=== PATIENT | female | born 1955 ===

== ENCOUNTER 2017-06-18 17:00 | Emergency (ER) | payer OTHER ==
[2017-06-18 17:11] VITALS: BP 127/79; PULSE 81; RESP 19; TEMP 98.7; O2SAT 99
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
--- NOTE | 2017-06-19 07:44 | RAD ---
PROCEDURE: Cervical Spine Radiographs. HISTORY: Pain. COMPARISON: None. FINDINGS: BONES: There is a mild reversal of cervical curvature but no definite fracture or spondylolisthesis is demonstrated. Advanced spondylosis identified at the C4-5 and C6-7 levels anteriorly but is minimal at C5-6. Mild multilevel facet joint arthropathy appears diffuse. Vertebral body heights are normal with limited disc height loss identified at C6-7. Prevertebral soft tissues are unremarkable as well as the odontoid process. DISC SPACES: As above. SOFT TISSUES: As above. OTHER FINDINGS: None. IMPRESSION: No definite fracture or spondylolisthesis. Mild reversal of cervical curvature. Multilevel cervical spondylosis and facet arthropathy identified.
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
== END 2017-06-18 19:07 | disposition home or self-care (01) ==
LOC: H.ER 17:00 → SUPCPDRO 17:00 → H.ER 19:07
DX: S13.4XXA Sprain of ligaments of cervical spine, initial encounter (principal); M54.5 Low back pain; V43.62XA Car passenger injured in collision with other type car in traffic accident, initial encounter; Y92.410 Unspecified street and highway as the place of occurrence of the external cause